=== PATIENT | male | born 1990 | race Caucasian/White ===

== ENCOUNTER 2019-09-01 10:13 | Emergency (ER) | payer BC ==
[~2019-09-01] VITALS: Ht 177.8 cm; Wt 87.3 kg
[2019-09-01 10:17] VITALS: Ht 177.8 cm; Wt 87.3 kg
[2019-09-01 12:01] VITALS: BP 140/95; PULSE 78; RESP 18
== END 2019-09-01 12:15 | disposition home or self-care (01) ==
LOC: E/R 10:13
DX: E04.1 Nontoxic single thyroid nodule (principal)
CPT/HCPCS: 76536; 84436; 84479; 93970